=== PATIENT | male | born 1985 | race Two or more races ===

== ENCOUNTER 2017-01-03 19:36 | Emergency (ER) | payer MEDICAID ==
--- NOTE | 2017-01-03 20:10 | ED Physician Chart ---
ED Chief Complaint/HPI - Patient Information Date Seen:: 01/03/17 Time Seen:: 20:05 Chief Complaint:: Nasal congestion, sore throat for 3 days History of Present Illness:: 31 yo male had nasal congestion, sore throat, body ache and non-productive cough for 3 days. Denies fever or chills. The patient's 10 year old son had similar symptoms 1 week prior. Allergies:: Allergies Allergy/AdvReac Type Severity Reaction Status Date / Time No Known Allergies Allergy Verified 01/03/17 19:49 Vitals:: Vital Signs - 8 hr 01/03/17 19:40 Temp 97.7 F HR 74 RR 18 BP 134/83 O2 Sat % 100 ED Review of Systems - Review of Systems General/Constitutional: No fever Skin: No skin lesions Head: Headache Eyes: No loss of vision ENT: No earache, Nasal drainage, Sore throat Neck: Neck pain Cardio Vascular: No chest pain Pulmonary: No SOB GI: No nausea, No diarrhea G/U: No dysuria Musculoskeletal: No bone or joint pain Psychiatric: No prior psych history ED Past Medical History - Past Medical History Past Medical History: No significant medical hx Social History: No Alcohol, No Drug Use, Other (Chew tobacco) Surgical History: None Family Medical History - Family Member Mother History Unknown: Yes ED Physical Exam - Physical Examination General/Constitutional: Well-developed, well-nourished Head: Atraumatic Eyes: Lids, conjuctiva normal, PERRL, EOMI Skin: No rash Other ENMT comments:: Oropharyngeal erythema without purulent secretion Other Neck comments:: Mild tenderness bilateral upper neck Respiratory: Clear to Auscultation, No Wheeze/Rhonchi/Rales Cardio Vascular: No murmur, gallop, rubs, NL S1 S2 GI: No tenderness/rebounding/guarding : No CVA tenderness Extremities: Full ROM Neuro/Psych: No focal deficits ED Assessment - Assessment General Assessment: Upper respiratory infection Critical Care Time: 30 Excludes all billable procedures: Yes This condition life threatening/high prob of deterioration: No Assessment/Comments:: Tamiflu 75mg bid x 5 days F/u as needed ED Septic Shock - <6hrs of presentation: Vital Signs: Vital Signs - 8 hr 01/03/17 19:40 Temp 97.7 F HR 74 RR 18 BP 134/83 O2 Sat % 100 ED Reassessment (Disposition) - Reassessment Reassessment Condition:: Unchanged - Aftercare/Follow up Instructions Aftercare/Follow-Up Instructions:: Counseled pt regarding lab results/diagnosis & need follow up, Refer to Discharge Instructions - Patient Disposition Discharge/Transfer:: Home
== END 2017-01-03 20:44 | disposition home or self-care (01) ==
LOC: ER 19:36
DX: J06.9 Acute upper respiratory infection, unspecified (principal); F17.220 Nicotine dependence, chewing tobacco, uncomplicated
CPT/HCPCS: Z7502